=== PATIENT | male | born 1975 | race Caucasian/White ===

== ENCOUNTER 2016-11-10 11:19 | Emergency (ER) | payer MEDICAID | END 2016-11-10 14:40 | disposition home or self-care (01) | LOC: ER 11:19 | DX: S09.8XXA Other specified injuries of head, initial encounter (principal); S16.1XXA Strain of muscle, fascia and tendon at neck level, initial encounter; S00.83XA Contusion of other part of head, initial encounter; S00.432A Contusion of left ear, initial encounter; S80.01XA Contusion of right knee, initial encounter; V86.59XA Driver of other special all-terrain or other off-road motor vehicle injured in nontraffic accident, initial encounter; F17.210 Nicotine dependence, cigarettes, uncomplicated | CPT/HCPCS: 70450; 72125 ==